=== PATIENT | female | born 1995 | race Caucasian/White ===

== ENCOUNTER 2020-01-12 19:56 | Outpatient (CLI) | payer BC, OTHER ==
[2020-01-12 20:28] VITALS: BP 111/68; PULSE 102; RESP 16; TEMP 96.9
--- NOTE | 2020-01-30 08:38 | P.MSEPDOC ---
Presenting Problems - Arrival Data Date of Arrival on Unit: 01/12/20 Time of Arrival on Unit: 20:00 Mode of Transport: Ambulatory - Complaint OB-Reason for Admission/Chief Complaint: Possible Onset of Labor Comment: pt reports to triage with c/o cramping in lower back. Starting this evening. Medical History - Information : 1 Para: 0 Term: 0 : 0 Abortions: Spontaneous or Elective: 0 Number of Living Children: 0 - Gestational Age Gestational Age by KATARINA (wks/days): 38 Weeks and 0 Days - History Complications: GBS+ Review of Systems - Review of Systems Constitutional: No problems Breast: No problems ENT: No problems Cardiovascular: No problems Respiratory: No problems Gastrointestinal: No problems Genitourinary: No problems Musculoskeletal: No problems Neurological: No problems Skin: No problems Vital Signs - Temperature Temperature: 96.9 F Temperature Source: Temporal Artery Scan - Pulse Right Brachial Pulse Rate: 102 Pulse Assessment Method: Automatic Cuff - Respirations Respiratory Rate: 16 Oxygen Delivery Method: Room Air O2 Sat by Pulse Oximetry: 98 - Blood Pressure Right Arm Blood Pressure: 111/68 Blood Pressure Mean: 82 Blood Pressure Source: Automatic Cuff Medical Screen Scoring (Pre) - Cervical Exam Dilation: 1-3 cm = 1 Membranes: Intact - Uterine Contractions Frequency: > 5 minutes apart = 1 - Maternal Vital Signs Maternal Temperature: N/A Maternal Blood Pressure: N/A Signs of Preeclampsia: N/A Maternal Respirations: N/A - Maternal Trauma Maternal Trauma: N/A - Assessment - Baby A Baseline FHR: 130 Heart Rate - NICHD Category: Category I (Normal) = 0 NST: Reactive Position: N/A Station: N/A - Total Score - Baby A Total Score - Baby A: 2 - Total Score - Baby B Total Score - Baby B: 2 - Total Score - Baby C Total Score - Baby C: 2 - Level of Risk - Baby A Level of Risk - Baby A: Low (0-5) - Level of Risk - Baby B Level of Risk - Baby B: Low (0-5) - Level of Risk - Baby C Level of Risk - Baby C: Low (0-5) Physician Notification (Pre) - Physician Notified Physician Notified Date: 01/12/20 Physician Notified Time: 21:12 New Order Received: Yes - Notification Comment Comment: RN spoke with Dr. Parr. RN reported that [facility] wasnt picking up patients. contractions due to weight but patient was pressing buttom when she felt contractions. Patient states she had nine contractions this hour. Cervical exam was unchanged after. one hour and patient stated she felt more comfortable. Patients vital signs were WNL. No. bleeding or fluid noted during exam. Dr. Muro states patient may be discharged with. instructions toreturn when contractions were increasing in strength and frequency, any. bleeding similar to a period or passing clots, or if her water breaks. Patient. verbalizes understanding. Disposition - Disposition OB Disposition: Discharge to home Discharge Date: 01/12/20 Discharge Time: 21:30 I agree with the RN Medical Screening Exam: Yes Risk & Benefit of care provided described in d/c instruction: Yes Diagnosis: false labor 3rd trimester
== END 2020-01-12 21:30 | disposition home or self-care (01) ==
LOC: FBPOP 19:56
PROVIDERS: ATTEND Obstetrics & Gynecology
DX: O47.1 False labor at or after 37 completed weeks of gestation (principal); Z3A.38 38 weeks gestation of pregnancy
CPT/HCPCS: 59025; 99213

== ENCOUNTER 2020-01-15 23:03 | Outpatient (CLI) | payer BC, OTHER ==
[2020-01-16 04:05] VITALS: BP 131/82; PULSE 85; RESP 16; TEMP 96.5
--- NOTE | 2020-02-12 11:23 | P.MSEPDOC ---
Presenting Problems - Arrival Data Date of Arrival on Unit: 01/16/20 Time of Arrival on Unit: 23:03 Mode of Transport: Wheelchair - Complaint OB-Reason for Admission/Chief Complaint: Possible Onset of Labor Comment: Cramping that started around 1700, 3/10 for pain Medical History - Information : 1 Para: 0 Term: 0 : 0 Abortions: Spontaneous or Elective: 0 Number of Living Children: 0 - Gestational Age Gestational Age by KATARINA (wks/days): 38 Weeks and 4 Days Review of Systems - Review of Systems Constitutional: No problems Breast: No problems ENT: No problems Cardiovascular: No problems Respiratory: No problems Gastrointestinal: No problems Genitourinary: No problems Musculoskeletal: No problems Neurological: No problems Skin: No problems Vital Signs - Temperature Temperature: 96.5 F Temperature Source: Temporal Artery Scan - Pulse Right Brachial Pulse Rate: 85 Pulse Assessment Method: Automatic Cuff - Respirations Respiratory Rate: 16 Oxygen Delivery Method: Room Air O2 Sat by Pulse Oximetry: 97 - Blood Pressure Right Arm Blood Pressure: 131/82 Blood Pressure Mean: 98 Blood Pressure Source: Automatic Cuff Medical Screen Scoring (Pre) - Cervical Exam Dilation: 1-3 cm = 1 Effacement: More than 50% = 2 Membranes: Intact - Uterine Contractions Frequency: > 5 minutes apart = 1 Duration: > 40 seconds = 2 Intensity: N/A - Maternal Vital Signs Maternal Temperature: N/A Signs of Preeclampsia: N/A Maternal Respirations: N/A - Maternal Trauma Maternal Trauma: N/A - Assessment - Baby A Baseline FHR: 125 Heart Rate - NICHD Category: Category I (Normal) = 0 NST: Reactive - Total Score - Baby A Total Score - Baby A: 6 - Total Score - Baby B Total Score - Baby B: 6 - Total Score - Baby C Total Score - Baby C: 6 - Level of Risk - Baby A Level of Risk - Baby A: Medium (6-9) - Level of Risk - Baby B Level of Risk - Baby B: Medium (6-9) - Level of Risk - Baby C Level of Risk - Baby C: Medium (6-9) Physician Notification (Pre) - Physician Notified Physician Notified Date: 01/16/20 Physician Notified Time: 00:16 New Order Received: Yes - Notification Comment Comment: No cervical change after 1 hour, pt 3.5/70/-2, 2 contractions in 1 hour. D/c pt home and follow up 01/17/20 Disposition - Disposition OB Disposition: Physician follow up in office, Discharge to home, Written follow up instructions reviewed Discharge Date: 01/16/20 Discharge Time: 00:18 I agree with the RN Medical Screening Exam: Yes Risk & Benefit of care provided described in d/c instruction: Yes Diagnosis: FALSE LABOR AT OR AFTER 37 COMPLETED WEEKS OF GESTATION
== END 2020-01-16 00:18 | disposition home or self-care (01) ==
LOC: FBPOP 23:03
PROVIDERS: ATTEND Obstetrics & Gynecology
DX: O47.1 False labor at or after 37 completed weeks of gestation (principal); Z3A.38 38 weeks gestation of pregnancy
CPT/HCPCS: 59025; 99213

== ENCOUNTER 2020-01-21 06:30 | Inpatient (IN) | payer BC, OTHER ==
[2020-01-21] MEDS ORDERED: OXYTOCIN 10 UNIT/ML 1 ML VIAL IM PRN (06:46)
[2020-01-21] MEDS ORDERED: CARBOPROST TROMETHAMINE 250 MCG/ML 1 ML AMP IM PRN (06:46)
[2020-01-21] MEDS ORDERED: TERBUTALINE 1 MG/ML VIAL SQ PRN (06:46)
[2020-01-21] MEDS ORDERED: LIDOCAINE 0.5% (PF) 5 MG/ML (50 ML SDV) SQ PRN (06:46)
[2020-01-21] MEDS ORDERED: PENICILLIN G POTASSIUM 5,000,000 UNIT in DEXTROSE 5% IN WATER 100 ML IVPB STA ×2 (06:46)
[2020-01-21] MEDS ORDERED: METHYLERGONOVINE 0.2 MG/ML 1 ML AMP IM PRN (06:46)
[2020-01-21] MEDS ORDERED: OXYTOCIN 30 UNITS/500 ML NS 30 UNIT in SALINE 1 500ML.BAG IV SCH (07:00)
[2020-01-21] MEDS ORDERED: LACTATED RINGERS 1,000 ML IV SCH (07:00)
[2020-01-21 07:26] LABS: Basophils % (A) 0 %; Eosinophils # (A) 0.2 k/uL (0-0.7); Eosinophils % (A) 1 %; HCT 37.7 % (34.0-46.0); HGB 12.7 gm/dL (11.4-16.0); Lymphocytes % (A) 15 %; MCHC 33.8 g/dL (31.0-37.0); MCV 94.6 fL (80.0-100.0); Mean Platelet Volume 10.6; Monocytes # (A) 0.5 k/uL (0-1.0); Monocytes % (A) 4 %; Neutrophils # (A) 10.1 k/uL (1.3-7.7); Neutrophils % (A) 78 %; Platelet Count 154 k/uL (150-450); RBC 3.98 m/uL (3.80-5.40); RDW 13.2 % (11.5-15.5); WBC 12.9 k/uL (3.8-10.6)
--- NOTE | 2020-01-21 07:52 | P.HPOB ---
History of Present Illness H&P Date: 01/21/20 Chief Complaint: Here for elective induction of labor This is a 24-year-old white female 1 para 0 EDC 01/26/2020 39-2/7 weeks' gestation. Patient presents this morning for elective induction of labor. Fetus active throughout the . She denies vaginal bleeding or fluid leakage. Past medical history is significant for gonorrhea 2017, recent cultures negat hung. Maternal obesity. Past surgical history tonsillectomy 2001, abscess IND under left axilla. Current medications vitamins. ALLERGIES none known. Family history significant for diabetes hypertension and heart disease. Social history patient is single, boyfriend is present and involved. She is a previous tobacco smoker, denies alcohol and drug use. history significant for blood type B positive, rubella status immune. VDRL testing, urine culture, hepatitis B surface antigen, HIV testing, gonorrhea and chlamydia cultures all negative. One-hour Glucola elevated, 3 hour GTT within normal limits. Group B strep cultures positive. On exam patient is 5 foot 5 inches, 286 pounds, blood pressure 117/67. General physical exam is within normal limits. Cervix is 4-5 cm dilated, 70% effaced, - 2 station, vertex presentation. Official amniorrhexis reveals clear fluid. Her heart rate is consistent with reactive NST, baseline 140s with frequent accelerations. Impression: 39-2/7 weeks intrauterine , here for elective induction of labor, all signs reassuring. Positive group B strep cultures, first dose of penicillin G already infused. Plan: Oxytocin per hospital protocol. Close maternal and surveillance. Antibiotics per hospital protocol. Analgesic options have been reviewed. Anticipate normal spontaneous vaginal delivery. Review of Systems Constitutional: Reports as per HPI Past Medical History Past Medical History: No Reported History History of Any Multi-Drug Resistant Organisms: None Reported Past Surgical History: Adenoidectomy, Tonsillectomy Additional Past Surgical History / Comment(s): drainage of abcess under right arm Past Anesthesia/Blood Transfusion Reactions: No Reported Reaction Past Psychological History: No Psychological Hx Reported Smoking Status: Former smoker Past Alcohol Use History: None Reported Past Drug Use History: None Reported - Past Family History Mother Family Medical History: Coronary Artery Disease (CAD), Diabetes Mellitus, Hypertension, Thyroid Disorder Additional Family Medical History / Comment(s): hx of bypass surgery Medications and Allergies Home Medications Medication Instructions Recorded Confirmed Type Pnv No.95/Ferrous Fum/Folic AC 1 tab PO DAILY 01/12/20 01/21/20 History [ Multivitamin Tablet] Allergies Allergy/AdvReac Type Severity Reaction Status Date / Time No Known Allergies Allergy Verified 01/21/20 06:45 Exam Vital Signs Temp Pulse Resp BP Pulse Ox 01/21/20 06:45 97.8 F 85 18 117/67 98 Intake and Output 01/20/20 01/21/20 01/21/20 22:59 06:59 14:59 Other: Weight 129.727 kg See dictation under HPI please Results Result Diagrams: 01/21/20 07:10 Abnormal Lab Results - Last 24 Hours (Table) 01/21/20 Range/Units 07:10 WBC 12.9 H (3.8-10.6) k/uL Neutrophils # 10.1 H (1.3-7.7) k/uL Assessment and Plan Assessment: 39-2/7 weeks intrauterine , favorable cervix, here for elective induction of labor. Positive group B strep cultures. Maternal obesity noted. All signs otherwise reassuring. Plan: Penicillin G per hospital protocol. Oxytocin per hospital protocol. Close maternal and surveillance. Analgesic options reviewed with the patient. Anticipate normal spontaneous vaginal delivery. Time with Patient: Less than 30
[2020-01-21] MEDS ORDERED: PENICILLIN G POTASSIUM 2,500,000 UNIT in DEXTROSE 5% IN WATER 100 ML IVPB SCH ×2 (11:00)
[2020-01-21] MEDS ORDERED: BUTORPHANOL 1 MG/ML 1 ML VIAL IV PRN (12:10)
--- NOTE | 2020-01-21 13:28 | P.PROBDLV ---
Vaginal Delivery Note - . Vaginal Delivery Note: This is a 24-year-old white female 1 para 0 EDC 01/26/2020 at 39-2/7 weeks' gestation. Patient presented for induction. Fetus active throughout the . Group B strep cultures positive. Blood type A positive. Rubella status immune. Please see dictated history and physical for details. Oxytocin was started and titrated per hospital protocol. Artificial amniorrhexis revealed clear fluid. Penicillin G was given 2 doses. Patient progressed well through the first stage of labor was judged to be completely dilated at 1253 hrs. She began the second stage of labor at that time. Patient progressed well and crowned the infant. The perineal body was prepped and draped in usual sterile fashion. 's head delivered at 1312 hrs. and restituted accordingly. There was no nuchal cord noted. The left or anterior shoulder was delivered from underneath the pubic symphysis at which time the oropharynx, nasopharynx, and external nares were all bulb suctioned. Patient was officially delivered of a liveborn male infant at 1313 hrs. Umbilical cord was doubly clamped and ligated, he was handed to waiting nurses for evaluation where scores of 9 and 9 at one and 5 minutes respectively were given. Placenta delivered spontaneously, it was inspected and noted to be intact with trivascular cord at 1314 hrs. Uterus is then massaged. Careful inspection of the cervix, vagina, perineum, periurethral, and perirectal areas revealed no significant lacerations that required suturing. Total estimated blood loss 250 mL's. weight 3580 g or 7 lbs. 14 oz. Patient is requesting circumcision for her infant son. She'll allowed to begin the bonding experience in the LDR.
[2020-01-21] MEDS ORDERED: diphenhydrAMINE 25 MG CAP PO PRN (14:09)
[2020-01-21] MEDS ORDERED: ACETAMINOPHEN TAB 325 MG TAB PO PRN (14:09)
[2020-01-21] MEDS ORDERED: SIMETHICONE 80 MG CHEWABLE PO PRN (14:09)
[2020-01-21] MEDS ORDERED: HYDROCORTISONE 2.5% RECTAL CREAM 30 GM TUBE RECTAL PRN (14:09)
[2020-01-21] MEDS ORDERED: diphenhydrAMINE 50 MG/ML 1 ML VIAL IVP PRN ×2 (14:09)
[2020-01-21] MEDS ORDERED: IBUPROFEN 600 MG TAB PO PRN (14:09)
[2020-01-21] MEDS ORDERED: LANOLIN CREAM 5 GM TUBE TOPICAL PRN (14:09)
[2020-01-21] MEDS ORDERED: ZOLPIDEM 5 MG TAB PO PRN (14:09)
[2020-01-21] MEDS ORDERED: diphenhydrAMINE 50 MG CAP PO PRN (14:09)
[2020-01-21] MEDS ORDERED: BENZOCAINE/MENTHOL SPRAY 1 GM/SPRAY AEROSOL TOPICAL PRN (14:09)
[2020-01-21] MEDS ORDERED: OXYTOCIN 20 UNITS/1000 ML NS 1,000 ML IV SCH (14:15)
[2020-01-21] MEDS ORDERED: SENNOSIDES-DOCUSATE SODIUM 1 EACH TAB PO SCH (20:00)
[2020-01-22 00:01] VITALS: RESP 16
[2020-01-22 05:46] LABS: Basophils % (A) 0 %; Eosinophils # (A) 0.1 k/uL (0-0.7); Eosinophils % (A) 1 %; HCT 33.9 % (34.0-46.0); HGB 11.2 gm/dL (11.4-16.0); Lymphocytes # (A) 2.2 k/uL (1.0-4.8); Lymphocytes % (A) 15 %; MCH 31.5 pg (25.0-35.0); MCHC 33.2 g/dL (31.0-37.0); MCV 94.9 fL (80.0-100.0); Mean Platelet Volume 10.7; Monocytes # (A) 0.5 k/uL (0-1.0); Monocytes % (A) 4 %; Neutrophils # (A) 11.5 k/uL (1.3-7.7); Neutrophils % (A) 79 %; Platelet Count 138 k/uL (150-450); RBC 3.57 m/uL (3.80-5.40); RDW 13.3 % (11.5-15.5); WBC 14.5 k/uL (3.8-10.6)
--- NOTE | 2020-01-22 08:48 | P.DS ---
Providers Date of admission: 01/21/20 06:30 Expected date of discharge: 01/22/20 Attending physician: Zaira Choi Primary care physician: Stated None Hospital Course: This is a 24-year-old white female 1 para 0 EDC 01/26/2020 at 39-2/7 weeks' gestation. Patient presented for induction with favorable cervix. History is significant for positive group B strep cultures, blood type A positive, rubella status immune. Please see dictated history and physical for details. Artificial amniorrhexis revealed clear fluid. Epidural was declined by the patient. Oxytocin started and titrated per hospital protocol. Patient went on to deliver vaginally a liveborn male infant with scores of 9 and 9 at one and 5 minutes respectively. He weighed 7 lbs. 14 oz. or 3580 g. There was an estimated blood loss of 250 mL's. No lacerations requiring suturing. Please see dictated delivery note for details. This morning the patient is doing well. She is voiding, ambulating and passing flatus without difficulty. Vital signs are stable and she is afebrile. Fundus is firm and in the midline, symmetric and 18 week size. Extremities are negative for edema. infant is doing well. Circumcision has been performed. Patient is judged to be in very good condition for discharge home. She will follow-up with me in the office in 6 weeks. I have reminded her no intercourse, tampons or douching. She will use [id number] Advil, Motrin or Aleve as needed for pain. I've discussed with her options for contraception and we will discuss this further in the office. She will call with any fevers shakes or chills, foul smelling or copious lochia, with the passage of large blood clots, with any pain not alleviated by [id number] products, or indeed with any concerns. Patient Condition at Discharge: Good Plan - Discharge Summary Discharge Rx Participant: No New Discharge Prescriptions: No Action Pnv No.95/Ferrous Fum/Folic AC [ Multivitamin Tablet] 1 tab PO DAILY Discharge Medication List Pnv No.95/Ferrous Fum/Folic AC [ Multivitamin Tablet] 1 tab PO DAILY 01/12/20 [History] Follow up Appointment(s)/Referral(s): Zaira Choi MD [STAFF PHYSICIAN] - 6 Weeks Discharge Disposition: HOME SELF-CARE
[2020-01-22 10:43] VITALS: BP 134/89; PULSE 68; TEMP 98.1
== END 2020-01-22 13:57 | disposition home or self-care (01) | DRG 807 ==
LOC: 4FBP 06:30
PROVIDERS: ADMIT Obstetrics & Gynecology; ATTEND Obstetrics & Gynecology
PROC: 10907ZC Drainage of Amniotic Fluid, Therapeutic from Products of Conception, Via Natural or Artificial Opening (ICD-10-PCS; principal; 2020-01-21)
PROC: 10E0XZZ Delivery of Products of Conception, External Approach (ICD-10-PCS; principal; 2020-01-21)
PROC: 3E033VJ Introduction of Other Hormone into Peripheral Vein, Percutaneous Approach (ICD-10-PCS; principal; 2020-01-21)
DX: O99.824 Streptococcus B carrier state complicating childbirth (principal); Z37.0 Single live birth; O99.214 Obesity complicating childbirth; E66.9 Obesity, unspecified; Z3A.39 39 weeks gestation of pregnancy; Z87.891 Personal history of nicotine dependence; Z90.89 Acquired absence of other organs; Z82.49 Family history of ischemic heart disease and other diseases of the circulatory system; Z83.3 Family history of diabetes mellitus
CPT/HCPCS: 85025; 86850; 86900; 86901

== ENCOUNTER 2020-07-19 11:26 | Emergency (ER) | payer BC, OTHER ==
[2020-07-19 11:30] VITALS: BP 139/79; PULSE 74; RESP 16; TEMP 98.7
--- NOTE | 2020-07-19 12:27 | ED ---
Extremity Problem HPI - General Chief complaint: Extremity Problem,Nontraumatic Stated complaint: L ankle pain, 8 Wks preg Time Seen by Provider: 07/19/20 11:34 Source: patient Mode of arrival: ambulatory Limitations: no limitations - History of Present Illness Initial comments: Patient is a 24-year-old female presenting to the emergency Department with complaints of pain in her left foot 3 days. Patient denies any falls or injuries. She states that she is concerned for possible blood clot secondary to the fact that she had Covid back in March and she is currently 8 weeks . She states the pain does radiate into her left lower leg as well. She denies any swelling, no redness to the area. She denies any fever or chills, no chest pain or shortness of breath. She denies any abdominal pain, no vaginal bleeding. She denies history of previous blood clots. She is no further complaints at this time. Upon arrival to the ER, her vital signs are stable. - Related Data Home Medications Medication Instructions Recorded Confirmed No Known Home Medications 07/19/20 07/19/20 Allergies Allergy/AdvReac Type Severity Reaction Status Date / Time No Known Allergies Allergy Verified 07/19/20 12:05 Review of Systems ROS Statement: Those systems with pertinent positive or pertinent negative responses have been documented in the HPI. ROS Other: All systems not noted in ROS Statement are negative. Past Medical History Past Medical History: No Reported History History of Any Multi-Drug Resistant Organisms: None Reported Past Surgical History: Adenoidectomy, Tonsillectomy Additional Past Surgical History / Comment(s): drainage of abcess under right arm Past Anesthesia/Blood Transfusion Reactions: No Reported Reaction Past Psychological History: No Psychological Hx Reported Smoking Status: Former smoker Past Alcohol Use History: None Reported Past Drug Use History: None Reported - Past Family History Mother Family Medical History: Coronary Artery Disease (CAD), Diabetes Mellitus, Hypertension, Thyroid Disorder Additional Family Medical History / Comment(s): hx of bypass surgery General Exam - General Exam Comments Initial Comments: GENERAL: Patient is well-developed and well-nourished. Patient is nontoxic and in no acute distress. HEAD: Atraumatic, normocephalic. EYES: Pupils equal round and reactive to light, extraocular movements intact, sclera anicteric, conjunctiva are normal. Eyelids were unremarkable. ENT: TMs normal, nares patent, oropharynx clear without exudates. Moist mucous membranes. NECK: Normal range of motion, supple without lymphadenopathy or JVD. LUNGS: Unlabored respirations. Breath sounds clear to auscultation bilaterally and equal. No wheezes rales or rhonchi. HEART: Regular rate and rhythm without murmurs, rubs or gallops. ABDOMEN: Soft, nontender, normoactive bowel sounds. No guarding, no rebound. No masses appreciated. : Deferred MUSCULOSKELETAL: Mild pain with palpation of the left lower leg, left lateral ankle. No obvious deformity, no swelling. She is no vascular intact. There is no erythema as well. No clubbing or cyanosis. NEUROLOGICAL: Patient is alert and oriented x 3. Motor and sensory are also intact. Cranial nerves II through XII grossly intact. Symmetrical smile. Normal speech, normal gait. PSYCH: Normal mood, normal affect. SKIN: Warm, Dry, normal turgor, no rashes or lesions noted. Limitations: no limitations Course Vital Signs 07/19/20 11:28 Temperature 98.7 F Pulse Rate 74 Respiratory 16 Rate Blood Pressure 139/79 O2 Sat by Pulse 98 Oximetry Medical Decision Making - Medical Decision Making Patient is a 24-year-old female here for left foot and left lower leg pain 3 days. She is concerned for possible blood clot secondary to having Covid in March and currently being 8 weeks . No other complaints today. Her exam is unremarkable, no swelling of the lower leg, no erythema. Ultrasound was done of the left lower leg reveals no evidence for DVT. I did discuss this with the patient. Her symptoms could be related from a small strain or sprain. She can follow-up with her doctor. Patient is stable for discharge. Patient is in agreement with this plan of care. Return parameters were discussed with the patient and they verbalized understanding. Case discussed with Dr. almeida. Disposition Clinical Impression: Left foot pain Disposition: HOME SELF-CARE Condition: Stable Instructions (If sedation given, give patient instructions): Normal Exam (ED) Additional Instructions: Please return to the Emergency Department if symptoms worsen or any other concerns. May take Tylenol for any discomfort, make sure to wear supportive shoes. Follow-up with your regular doctor. Is patient prescribed a controlled substance at d/c from ED?: No Referrals: Rianna Lucas MD [Primary Care Provider] - 1-2 days
--- NOTE | 2020-07-19 12:30 | US ---
EXAMINATION TYPE: US venous doppler duplex LE LT DATE OF EXAM: 07/19/2020 11:43 AM COMPARISON: NONE CLINICAL HISTORY: pain in lower leg x 3 days, . Left ankle pain. No injury. No redness. No swelling. SIDE PERFORMED: Left TECHNIQUE: The lower extremity deep venous system is examined utilizing real time linear array sonog ian with graded compression, doppler sonography and color-flow sonography. VESSELS IMAGED: Common Femoral Vein Deep Femoral Vein Greater Saphenous Vein * Femoral Vein Popliteal Vein Small Saphenous Vein * Proximal Calf Veins (* superficial vessels) Left Leg: Negative for DVT IMPRESSION: No evidence for DVT.
== END 2020-07-19 12:55 | disposition home or self-care (01) ==
LOC: EC 11:26
DX: O99.891 Other specified diseases and conditions complicating pregnancy (principal); M79.672 Pain in left foot; Z87.891 Personal history of nicotine dependence; Z3A.08 8 weeks gestation of pregnancy; Z86.16 Personal history of COVID-19
CPT/HCPCS: 99283

== ENCOUNTER 2021-02-17 06:00 | Inpatient (IN) | payer BC, OTHER ==
[2021-02-17] MEDS ORDERED: TERBUTALINE 1 MG/ML VIAL SQ PRN (06:28)
[2021-02-17] MEDS ORDERED: CARBOPROST TROMETHAMINE 250 MCG/ML 1 ML AMP IM PRN (06:28)
[2021-02-17] MEDS ORDERED: PENICILLIN G POTASSIUM 5,000,000 UNIT in DEXTROSE 5% IN WATER 100 ML IVPB STA ×2 (06:28)
[2021-02-17] MEDS ORDERED: LIDOCAINE 0.5% (PF) 5 MG/ML (50 ML SDV) SQ PRN (06:28)
[2021-02-17] MEDS ORDERED: METHYLERGONOVINE 0.2 MG/ML 1 ML AMP IM PRN (06:28)
[2021-02-17] MEDS ORDERED: OXYTOCIN 10 UNIT/ML 1 ML VIAL IM PRN (06:28)
[2021-02-17] MEDS ORDERED: OXYTOCIN 30 UNITS/500 ML NS 30 UNIT in SALINE 1 500ML.BAG IV SCH (06:30)
[2021-02-17] MEDS: LACTATED RINGERS 1,000 ML IV SCH ×2 (06:56→11:12)
[2021-02-17 07:14] LABS: Basophils % (A) 0 %; Eosinophils # (A) 0.1 k/uL (0-0.7); Eosinophils % (A) 1 %; HCT 35.4 % (34.0-46.0); Lymphocytes # (A) 1.5 k/uL (1.0-4.8); Lymphocytes % (A) 14 %; MCH 31.1 pg (25.0-35.0); MCHC 33.8 g/dL (31.0-37.0); Mean Platelet Volume 9.6; Monocytes # (A) 0.4 k/uL (0-1.0); Monocytes % (A) 3 %; Neutrophils % (A) 80 %; Platelet Count 236 k/uL (150-450); RBC 3.84 m/uL (3.80-5.40); RDW 14.2 % (11.5-15.5); WBC 11.2 k/uL (3.8-10.6)
--- NOTE | 2021-02-17 07:39 | P.HPOB ---
History of Present Illness H&P Date: 02/17/21 Chief Complaint: Here for elective induction of labor This is a 25 -year-old white female 2 para 1000 EDC 02/21/2021 at 39-3/7 weeks' gestation who presents today with favorable multiparous cervix for induction. Fetus is been active throughout the . She denies vaginal bleeding or fluid leakage. Past medical history is significant for arrhythmia, COVID-19 infection March 2020. Past surgical history tonsillectomy 2001, accessory removed in the left axillary area. Current medications vitamins daily, baby aspirin daily. ALLERGIES none known. Family history significant for hypertension, diabetes, heart disease. Obstetric history patient has a history of vaginal delivery 2019, infant 1 week of life. Social history former tobacco smoker, patient is single, father of the baby is involved. She denies alcohol or other drug use. history significant for blood type A positive, rubella status immune. VDRL testing, urine culture, hepatitis B surface antigen, HIV testing, gonorrhea and chlamydia cultures all negative. One-hour Glucola elevated, 3 hour GTT within normal limits. Group B strep cultures positive. On exam patient is 5 foot 5 inches, 330 pounds, blood pressure 131/69. General physical exam is within normal limits. Cervix is 4 cm dilated, 70% effaced, -2 station, vertex presentation, anterior, soft. Artificial amniorrhexis reveals clear fluid. heart rate in the 140s with reasonable overall variability. Impression: 39-3/7 weeks intrauterine , here for induction of labor, all signs reassuring. Plan: Penicillin G per hospital protocol. Close maternal and surveil devi. Oxytocin per protocol. Analgesic options reviewed. Anticipate normal spontaneous vaginal delivery. Review of Systems Constitutional: Reports as per HPI Past Medical History Past Medical History: No Reported History History of Any Multi-Drug Resistant Organisms: None Reported Past Surgical History: Adenoidectomy, Tonsillectomy Additional Past Surgical History / Comment(s): drainage of abcess under right arm Past Anesthesia/Blood Transfusion Reactions: No Reported Reaction Past Psychological History: No Psychological Hx Reported Smoking Status: Former smoker Past Alcohol Use History: None Reported Past Drug Use History: None Reported - Past Family History Mother Family Medical History: Coronary Artery Disease (CAD), Diabetes Mellitus, Hypertension, Thyroid Disorder Additional Family Medical History / Comment(s): hx of bypass surgery Medications and Allergies Home Medications Medication Instructions Recorded Confirmed Type Aspirin [Adult Low Dose Aspirin EC] 81 mg PO DAILY 02/17/21 02/17/21 History Ergocalciferol [Vitamin D2 (1250 1,250 tab PO DAILY 02/17/21 02/17/21 History Mcg = [id number] Iu)] Pnv No.95/Ferrous Fum/Folic AC 1 each PO DAILY 02/17/21 02/17/21 History [ Multivitamin Tablet] Allergies Allergy/AdvReac Type Severity Reaction Status Date / Time No Known Allergies Allergy Verified 02/17/21 06:26 Exam Vital Signs Temp Pulse Resp BP Pulse Ox 02/17/21 06:26 96.8 F L 92 18 131/69 98 Intake and Output 02/16/21 02/17/21 02/17/21 22:59 06:59 14:59 Other: Weight 149.685 kg See dictation under HPI please Results Result Diagrams: 02/17/21 06:50 Abnormal Lab Results - Last 24 Hours (Table) 02/17/21 Range/Units 06:50 WBC 11.2 H (3.8-10.6) k/uL Neutrophils # 9.0 H (1.3-7.7) k/uL Assessment and Plan Assessment: 39-3/7 weeks intrauterine , positive group B strep cultures, favorable multiparous cervix, here for induction of labor. Plan: Penicillin G per protocol, first dose already infusing. Oxytocin per hospital protocol. Close maternal and surveillance. Anticipate normal spontaneous vaginal delivery. Time with Patient: Less than 30
[2021-02-17] MEDS ORDERED: PENICILLIN G POTASSIUM 2,500,000 UNIT in DEXTROSE 5% IN WATER 100 ML IVPB SCH ×2 (11:00)
[2021-02-17] MEDS ORDERED: diphenhydrAMINE 25 MG CAP PO PRN (12:42)
[2021-02-17] MEDS ORDERED: LANOLIN CREAM 5 GM TUBE TOPICAL PRN (12:42)
[2021-02-17] MEDS ORDERED: HYDROCORTISONE 2.5% RECTAL CREAM 30 GM TUBE RECTAL PRN (12:42)
[2021-02-17] MEDS ORDERED: SIMETHICONE 80 MG CHEWABLE PO PRN (12:42)
[2021-02-17] MEDS ORDERED: diphenhydrAMINE 50 MG/ML 1 ML VIAL IVP PRN ×2 (12:42)
[2021-02-17] MEDS ORDERED: diphenhydrAMINE 50 MG CAP PO PRN (12:42)
[2021-02-17] MEDS ORDERED: ZOLPIDEM 5 MG TAB PO PRN (12:42)
[2021-02-17] MEDS ORDERED: diphenhydrAMINE ELIXIR 25 MG/10 ML CUP PO PRN (12:42)
[2021-02-17] MEDS ORDERED: BENZOCAINE/MENTHOL SPRAY 1 GM/SPRAY AEROSOL TOPICAL PRN (12:42)
--- NOTE | 2021-02-17 12:42 | P.PROBDLV ---
Vaginal Delivery Note - . Vaginal Delivery Note: This is a 25-year-old female 2 para 1000 EDC 02/21/2021 at 39-3/7 weeks' gestation. Patient presented for induction with favorable multiparous cervix. Group B strep cultures positive. Rubella status immune. Please see my dictated history and physical for details. Artificial amniorrhexis revealed clear fluid. Oxytocin was started and titrated, only up to 6 milliunits. Penicillin G was given per protocol 2 doses. She progressed well through the first stage of labor was judged be completely dilated at 1222 hours. Perineal body was prepped and draped in usual sterile fashion. With excellent maternal expulsive efforts the 's head delivered occiput anterior and he restituted accordingly. Was a nuchal cord 1 that was easily reduced. The oropharynx, nasopharynx, and external nares were all bulb suctioned. The left or anterior shoulder was gently delivered from underneath the pubic symphysis at which time the delivery was completed. Patient officially delivered a liveborn male at 1225 hours. Umbilical cord was doubly clamped and ligated, he was handed to waiting nurses for evaluation. weight 8 lbs. 14 oz. this is a 4035 g. The placenta delivered spontaneously, it was inspected and noted to be intact with trivascular cord at 1229 hours. At this time the perineal body was redraped. Careful inspection of the cervix, vagina, perineum, periurethral, and perirectal areas revealed no lacerations and no defects. Total estimated blood loss 150 mL's. All sponge needle and enhancement counts are correct. Patient is requesting circumcision for her son.
[2021-02-17] MEDS: IBUPROFEN 600 MG TAB PO SCH (14:10)
[2021-02-17] MEDS: SENNOSIDES-DOCUSATE SODIUM 1 EACH TAB PO SCH (19:56)
[2021-02-17] MEDS: ACETAMINOPHEN TAB 325 MG TAB PO PRN (22:47)
[2021-02-18] MEDS: IBUPROFEN 600 MG TAB PO SCH ×5 (00:04→18:30)
--- NOTE | 2021-02-18 08:01 | P.DS ---
Providers Date of admission: 02/17/21 06:08 Expected date of discharge: 02/18/21 Attending physician: Zaira Choi Primary care physician: Stated None Hospital Course: This is a 25-year-old white female 2 para 1000 EDC 02/21/2021 at 39-3/7 weeks' gestation. Patient presented for induction with favorable multiparous cervix. is essentially unremarkable, group B strep cultures negative, blood type A+, rubella status immune. Please see dictated history and physical for details. Artificial amniorrhexis revealed clear fluid. Patient progressed well and delivered vaginally a liveborn male . Perineal body was clean and intact, no lacerations. Estimated blood loss 150 mL's. There was a nuchal cord 1 that was reduced. Infant weighed 4035 g or 8 lbs. 14 oz. Please see dictated delivery note for details. This morning the patient is doing well. She is voiding, ambulating, passing flatus without difficulty. Vital signs are stable and she is afebrile. Fundus is firm and in the midline, symmetric and 18 week size. Extremities reveal no edema. Breast-feeding is going well. Bethany has been circumcised. Patient is judged to be in very good condition for discharge home. She will follow-up with me in the office in 6 weeks. I have reminded her no intercourse, tampons or douching. She will use [id number] Advil or Aleve, or Motrin as needed for pain. I've instructed to call with any fevers shakes or chills, foul smelling or copious lochia, with the passage of large blood clots, with any pain not alleviated by [id number] products, or indeed with any issues difficulties or concerns. Assessment: Doing well day #1 Patient Condition at Discharge: Good Plan - Discharge Summary Discharge Rx Participant: No New Discharge Prescriptions: No Action Pnv No.95/Ferrous Fum/Folic AC [ Multivitamin Tablet] 1 each PO DAILY Ergocalciferol [Vitamin D2 (1250 Mcg = 91590 Iu)] 1,250 tab PO DAILY Aspirin [Adult Low Dose Aspirin EC] 81 mg PO DAILY Discharge Medication List Aspirin [Adult Low Dose Aspirin EC] 81 mg PO DAILY 02/17/21 [History] Ergocalciferol [Vitamin D2 (1250 Mcg = 23624 Iu)] 1,250 tab PO DAILY 02/17/21 [History] Pnv No.95/Ferrous Fum/Folic AC [ Multivitamin Tablet] 1 each PO DAILY 02/17/21 [History] Follow up Appointment(s)/Referral(s): Zaira Choi MD [STAFF PHYSICIAN] - 6 Weeks Discharge Disposition: HOME SELF-CARE
[2021-02-18] MEDS: SENNOSIDES-DOCUSATE SODIUM 1 EACH TAB PO SCH ×2 (08:48→19:30)
[2021-02-18] MEDS: ACETAMINOPHEN TAB 325 MG TAB PO PRN (19:30)
[2021-02-19] MEDS: IBUPROFEN 600 MG TAB PO SCH ×3 (00:40→15:35)
[2021-02-19 08:29] VITALS: BP 101/50; PULSE 69; RESP 17; TEMP 98
[2021-02-19] MEDS: SENNOSIDES-DOCUSATE SODIUM 1 EACH TAB PO SCH (08:30)
== END 2021-02-19 15:45 | disposition home or self-care (01) | DRG 807 ==
LOC: 4FBP 06:08 → UNDODISIN 02-18 11:00
PROVIDERS: ADMIT Obstetrics & Gynecology; ATTEND Obstetrics & Gynecology
PROC: 10E0XZZ Delivery of Products of Conception, External Approach (ICD-10-PCS; principal; 2021-02-17)
PROC: 10907ZC Drainage of Amniotic Fluid, Therapeutic from Products of Conception, Via Natural or Artificial Opening (ICD-10-PCS; 2021-02-17)
PROC: 3E033VJ Introduction of Other Hormone into Peripheral Vein, Percutaneous Approach (ICD-10-PCS; 2021-02-17)
DX: O69.81X0 Labor and delivery complicated by cord around neck, without compression, not applicable or unspecified (principal); Z37.0 Single live birth; Z3A.39 39 weeks gestation of pregnancy; Z79.82 Long term (current) use of aspirin; Z82.49 Family history of ischemic heart disease and other diseases of the circulatory system; Z83.3 Family history of diabetes mellitus; Z87.891 Personal history of nicotine dependence
CPT/HCPCS: 85025; 86850; 86900; 86901

== ENCOUNTER → 2023-03-23 | Outpatient (CLI) | payer BC, OTHER ==
--- NOTE | 2023-03-23 12:09 | XR ---
EXAMINATION TYPE: XR chest 2V DATE OF EXAM: 03/23/2023 COMPARISON: NONE TECHNIQUE: PA and lateral views submitted. HISTORY: Vomiting possible aspiration FINDINGS: The lungs are clear and there is no pneumothorax, pleural effusion, or focal pneumonia. Heart size normal and no overt failure. Osseous structures demonstrate hypertrophic and degenerative changes of the spine. Limited inspiration. IMPRESSION: 1. No acute process.
== END | disposition home or self-care (01) ==
LOC: RADXRMAIN 11:21
PROVIDERS: ATTEND Dentist Oral and Maxillofacial Surgery
DX: J69.0 Pneumonitis due to inhalation of food and vomit (principal)
CPT/HCPCS: 71046